=== PATIENT | male | born 1990 ===

== ENCOUNTER 2018-07-20 20:05 | Emergency (ER) | payer SELFPAY ==
[2018-07-20 20:52] VITALS: TEMP 99.5
[2018-07-20 21:18] LABS: BASO # 0.1 K/uL (0.0-0.2); BASO % 0.6 % (0.0-2.0); EOS # 0.2 K/uL (0.0-0.7); EOS % 1.6 % (0.0-4.0); HEMOGLOBIN 13.7 g/dL (12.0-18.0); LYMPH # 1.7 K/uL (1.0-4.3); LYMPH % 17.6 % (20.0-40.0); MEAN CELL VOLUME 83.1 fL (80.0-94.0); MEAN CORPUSCULAR HGB CONC 33.7 g/dL (33.0-37.0); MONO # 0.7 K/uL (0.0-0.8); MONO % 7.3 % (0.0-10.0); NEUT # 7.1 K/uL (1.8-7.0); NEUT % 72.9 % (50.0-75.0); RBC 4.9 Mil/uL (4.40-5.90); RED CELL DISTRIBUTION WIDTH 13.8 % (11.5-14.5); WHITE BLOOD COUNT 9.8 K/uL (4.8-10.8)
[2018-07-20] MEDS ORDERED: Sodium Chloride 0.9% 1,000 ML IV ONE (21:24)
[2018-07-20 21:25] LABS: URINE AMORPHOUS SEDIMENT OCC /ul (<OCC); URINE BACTERIA FEW (<OCC); URINE BILIRUBIN NEGATIVE (NEGATIVE); URINE CLARITY Hazy (Clear); URINE COLOR Yellow (YELLOW); URINE GLUCOSE (UA) NORMAL (Normal); URINE LEUKOCYTE ESTERASE 2+ Leu/uL (Negative); URINE PROTEIN 2+ mg/dL (NEGATIVE); URINE UROBILINOGEN NORMAL mg/dL (0.2-1.0)
[2018-07-20 21:30] LABS: URINE BLOOD TRACE-LYSED (NEGATIVE)
[2018-07-20 21:37] LABS: ALB/GLOB RATIO 1.3 (1.0-2.1); ALBUMIN 4.3 g/dL (3.5-5.0); ALT/SGPT 54 U/L (21-72); AST/SGOT 37 U/L (17-59); BLOOD UREA NITROGEN 13 mg/dL (9-20); CALCIUM 9.2 mg/dl (8.6-10.4); GFR NON-AFRICAN AMERICAN > 60; LIPASE 59 U/L (23-300)
--- NOTE | 2018-07-20 23:07 | C.PDOC ---
History Of Present Illness 27 year old male presents to the emergency department with complaints of right flank pain which started yesterday. Patient denies nausea, vomiting, fever. He states that he noticed dark urine. He has no previous history of kidney stones. Chief Complaint (Nursing): Back Pain History Per: Patient History/Exam Limitations: no limitations Onset/Duration Of Symptoms: Days (1) Current Symptoms Are (Timing): Still Present Quality Of Discomfort: "Pain" Associated Symptoms: denies: New Weakness, New Numbness, Other (nausea, vomiting, fever) Past Medical History Reviewed: Historical Data, Nursing Documentation, Vital Signs Vital Signs: Last Vital Signs Temp 99.5 F 07/20/18 20:47 Pulse 79 07/20/18 20:47 Resp 18 07/20/18 20:47 BP 125/75 07/20/18 20:47 Pulse Ox 99 07/20/18 20:47 - Medical History PMH: No Chronic Diseases Surgical History: Appendectomy Family History: States: No Known Family Hx - Social History Hx Alcohol Use: Yes Hx Substance Use: No - Immunization History Hx Tetanus Toxoid Vaccination: No Hx Influenza Vaccination: No Hx Pneumococcal Vaccination: No Review Of Systems Except As Marked, All Systems Reviewed And Found Negative. Constitutional: Negative for: Fever, Chills Gastrointestinal: Negative for: Nausea, Vomiting Genitourinary: Positive for: Other (dark urine) Musculoskeletal: Positive for: Back Pain (right flank pain) Physical Exam - Physical Exam Appears: Non-toxic, In Acute Distress (mild) Skin: Warm, Dry Head: Atraumatic, Normacephalic Eye(s): bilateral: Normal Inspection, PERRL, EOMI Oral Mucosa: Moist Neck: Normal, Supple Chest: Symmetrical, No Tenderness Cardiovascular: Rhythm Regular, No Murmur Respiratory: No Rales, No Rhonchi, No Wheezing Gastrointestinal/Abdominal: Soft, No Tenderness, No Guarding, No Rebound Back: CVA Tenderness (mild, right-sided) Neurological/Psych: Oriented x3, Normal Speech, Normal Cognition ED Course And Treatment - Laboratory Results Result Diagrams: 07/20/18 21:15 07/20/18 21:15 O2 Sat by Pulse Oximetry: 99 (RA) Pulse Ox Interpretation: Normal - CT Scan/US CT Abdomen and Pelvis Other Rad Studies (CT/US): Read By Radiologist, Radiology Report Reviewed CT/US Interpretation: IMPRESSION: 1. Punctate non-obstructing calculus is present in the lower pole of the left kidney. 2. Mild right hydroureteronephrosis is noted without obstructing stone visualized, likely recently passed. Progress Note: Plan: CT Abdomen and Pelvis. CMP. Lipase. CBC. NaCl IV Fluids. Toradol 30mg IVP. Urine Culture. Urinalysis Disposition - Disposition Referrals: [facility] [Outside] [facility] [Outside] Disposition: HOME/ ROUTINE Disposition Time: 23:15 Condition: IMPROVED Additional Instructions: DOMINGO HANNON, thank you for letting us take care of you today. The emergency medical care you received today was directed at your acute symptoms. If you were prescribed any medication, please fill it and take as directed. It may take several days for your symptoms to resolve. Return to the Emergency Department if your symptoms worsen, do not improve, or if you have any other problems. Please contact your doctor or call one of the physicians/clinics you have been referred to that are listed on the Patient Visit Information form that is included in your discharge packet. Bring any paperwork you were given at discharge with you along with any medications you are taking to your follow up visit. Our treatment cannot replace ongoing medical care by a primary care provider outside of the emergency department. Thank you for allowing the [facility] team to be part of your care today. Follow up with the clinic in 3-5 days for re-evaluation and further management. Prescriptions: Ibuprofen [Motrin] 600 mg PO Q6 PRN #20 tab PRN Reason: Pain, Moderate (4-7) Sulfamethoxazole/Trimethoprim [Bactrim DS 800 mg-160 mg] 1 tab PO BID #20 tab Instructions: Urinary Tract Infection, Adult (DC) Forms: [employer] (Pashto) - Clinical Impression Clinical Impression: UTI (urinary tract infection) - Scribe Statement The provider has reviewed the documentation as recorded by the Scribe (Mauricio Stevenson) Provider Attestation: All medical record entries made by the Scribe were at my direction and personally dictated by me. I have reviewed the chart and agree that the record accurately reflects my personal performance of the history, physical exam, medical decision making, and the department course for this patient. I have also personally directed, reviewed, and agree with the discharge instructions and disposition.
[2018-07-20] MEDS ORDERED: Tmp-Smz 800 mg-160 mg DS Tab PO STA (23:20)
[2018-07-20] MEDS ORDERED: Tmp-Smz 800 mg-160 mg DS Tab ONE (23:29)
[2018-07-20 23:32] VITALS: BP 107/62; PULSE 76; RESP 16
[2018-07-20 23:42] VITALS: O2SAT 99
--- NOTE | 2018-07-21 13:04 | CT ---
Date of service: 07/20/2018 PROCEDURE: CT Abdomen and Pelvis without intravenous contrast HISTORY: right CVA tenderness with hematuria COMPARISON: None. TECHNIQUE: Helical CT of the abdomen and pelvis was performed without oral or intravenous contrast as per referring physician request. Coronal and sagittal reformats were generated. Contrast dose: None Radiation dose: Total exam DLP = 283.39 mGy-cm. This CT exam was performed using one or more of the following dose reduction techniques: Automated exposure control, adjustment of the mA and/or kV according to patient size, and/or use of iterative reconstruction technique. FINDINGS: LOWER THORAX: Bilateral basilar dependent atelectasis identified. LIVER: Unremarkable. No gross lesion or ductal dilatation. GALLBLADDER AND BILE DUCTS: Unremarkable. PANCREAS: Unremarkable. No gross lesion or ductal dilatation. SPLEEN: Unremarkable. ADRENALS: Unremarkable. No mass. KIDNEYS AND URETERS: No radiodense urolithiasis identified bilaterally punctate intrarenal calculi identified at the lower pole left kidney. Urinary bladder is unremarkable. There is minimal hydronephrosis and mild proximal to mid right hydroureter without ureteral radiodense calculus related. This may reflect expulsion of recently obstructing calculus or possible distal right ureteral stricture or radiolucent calculus. Further clinical correlation is advised. Further clinical correlation recommended. No significant perinephric reactive change bilaterally. VASCULATURE: Unremarkable. No aortic aneurysm. No aortic atherosclerotic calcification or mural plaque present. BOWEL: Stomach collapse not well evaluated. Further, evaluation of the gastrointestinal tract is limited due to the lack of oral contrast administration. No bowel obstruction is appreciable. Relatively prominent amount retained fecal material scattered throughout the proximal 2/3 of the large bowel with a moderate amount distally potentially reflecting constipation. Clinically correlate further. APPENDIX: Unremarkable. Normal appendix. PERITONEUM: Unremarkable. No free fluid. No free air. LYMPH NODES: Unremarkable. No enlarged lymph nodes. BLADDER: Unremarkable. REPRODUCTIVE: Unremarkable. BONES: No acute fracture. OTHER FINDINGS: None. IMPRESSION: Likely residual right renal collecting system and right ureteral dilatation related to expelled calculus as no radiodense obstructing calculus is appreciated at this time. Alternatively, limited distal right ureteral stricture or small lucent ureteral calculus is the differential diagnosis. Punctate intrarenal calculus left kidney. No left-sided obstructive uropathy. Urinary bladder is unremarkable appearing. Potential limited constipation.
== END 2018-07-20 23:33 | disposition home or self-care (01) ==
LOC: C.ER 20:05
DX: N39.0 Urinary tract infection, site not specified (principal)
CPT/HCPCS: 74176; 80053; 81001; 83690; 85025; 87086; 87181; 96361; 96374; 99283; J1885; J7030